=== PATIENT | male | born 1950 | race Two or more races ===

== ENCOUNTER 2018-02-09 10:24 | Emergency (ER) | payer OTHER ==
[2018-02-09] MEDS: NORMAL SALINE 1000 ML 1,000 ML IV ONE ×3 (10:45→15:55)
--- NOTE | 2018-02-09 11:11 | ER Document Report ---
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 Patient had no preceding symptomatology including lightheadedness, dizziness, chest pain, shortness of breath, weakness or numbness. Patient states he fell forward. He does not member the episode. It was witnessed with no shaking/seizure activity. Patient denies any symptomatology at this time including headache, neck pain, chest pain, abdominal pain, weakness or numbness. Patient states his tetanus is up-to-date. Patient states that he is from [facility] has been out of his metformin and amlodipine for greater than 2 weeks. - HPI Symptoms prior to episode: Other - See above Position/Activity at time of episode: Standing Quality of pain: Other - See above Severity: Mild Pain Level: Denies Context: Other - See above Current symptoms: None/feels back to normal Similar symptoms previously: No Recently seen / treated by doctor: No - Related Data Allergies/Adverse Reactions: No Known Allergies Allergy (Unverified 02/09/18 11:20) Past Medical History - Social History Smoking Status: Unknown if Ever Smoked Family History: Other Review of Systems - Review of Systems Constitutional: denies: Fever EENT: denies: Eye discharge, Nose discharge Cardiovascular: denies: Chest pain, Palpitations Respiratory: denies: Short of breath Gastrointestinal: denies: Vomiting Genitourinary: denies: Dysuria Musculoskeletal: denies: Leg swelling Skin: Other - no hives. denies: Rash Neurological/Psychological: Other - no slurred speech -: Yes All other systems reviewed and negative Physical Exam - Vital signs Vitals: Resp BP Pulse Ox 17 189/98 H 96 02/09/18 10:36 02/09/18 10:36 02/09/18 10:36 Notes: Reviewed vital signs and nursing note as charted by RN. CONSTITUTIONAL: Alert and oriented and responds appropriately to questions. Well -appearing; well-nourished HEAD: Patient has a small hemostatic laceration to the left temporal region as well as a abrasion/laceration to the right forehead. No depressed fractures noted EYES: PERRL; full extraocular range of motion ENT: Normal nose; no rhinorrhea; moist mucous membranes; no missing or loose dentition; no mastoid tenderness or ecchymosis; pharynx without lesions noted NECK: Supple without meningismus; non-tender; no cervical lymphadenopathy, no masses CARD: Regular rate and rhythm; no murmurs, no clicks, no rubs, no gallops; symmetric distal pulses RESP: Normal chest excursion without splinting or tachypnea; breath sounds clear and equal bilaterally ABD/GI: Normal bowel sounds; non-distended; soft, non-tender BACK: The back appears normal and is non-tender to palpation, there is no CVA tenderness EXT: Normal ROM in all joints; non-tender to palpation; no cyanosis, no effusions, no edema SKIN: See above NEURO: Cn 2-12 intact; Moves all extremities equally; Motor and sensory function intact PSYCH: The patient's mood and manner are appropriate. Grooming and personal hygiene are appropriate. Course - Re-evaluation Re-evalutation: 02/09/18 11:11 Given the above history and physical examination we will place the patient on the monitor, obtain a CT scan of the head, obtain basic labs, EKG, orthostatic vital signs, and an Accu-Chek. Accu-Chek as recorded. We will provide a liter of fluid and order venous blood gas. EKG shows a heart of 66, normal sinus rhythm, left axis deviation, poor R wave progression, inverted T waves in lead V6, minimal LVH. No old EKG to compare. 02/09/18 12:44 Labs as recorded. Normal anion gap. VBG is pending. Still no focal neurological deficits. CT as recorded. I spoke with the radiologist regarding the scan. She states mastoid effusions are not secondary to trauma. 02/09/18 14:29 CT scan is recorded. Labs as recorded. Blood glucose is improving. Venous blood gas as recorded. Given the above history and physical examination, I do not believe any other imaging or laboratory work is necessary. I do recommend admission for this patient given the unprovoked syncopal-like episode with the hypoglycemia and the high blood pressure. I have provided metformin, fluids, and amlodipine. Patient understands the risks and benefits of leaving but he does not want to be admitted at this time. 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 I have expressed to the patient the importance of staying with the risks of permanent disability and . He understands these risks and is able to sign out AGAINST MEDICAL ADVICE. He has capacity with orientation x4. 02/09/18 15:45 Patient's blood glucose has improved. We have given 2 L of fluid. Patient still has no focal neurological deficits. He denies any chest pain. He does not want to wait for any repeat laboratory values. I will provide amlodipine prescription and metformin prescription with strict return precautions and advised him to return at any time that he would like. - Vital Signs Vital signs: Temp Pulse Resp BP Pulse Ox 61 16 202/90 H 98 02/09/18 11:35 02/09/18 15:01 02/09/18 15:01 02/09/18 15:01 - Laboratory Result Diagrams: 02/09/18 10:06 02/09/18 10:06 Laboratory results interpreted by me: 02/09/18 02/09/18 02/09/18 10:06 11:38 12:36 VBG pH Sodium 132.1 L Chloride 97 L Carbon Dioxide 21 L BUN 29 H Glucose 565 H* POC Glucose 410 H* Urine Protein 100 H Urine Glucose (UA) >=500 H Urine Ketones TRACE H Urine Ascorbic Acid 20 H 02/09/18 02/09/18 12:50 14:30 VBG pH 7.43 H Sodium Chloride Carbon Dioxide BUN Glucose POC Glucose 370 H Urine Protein Urine Glucose (UA) Urine Ketones Urine Ascorbic Acid Procedures - Laceration/Wound Repair Left Face Wound length (cm): 4 Wound's Depth, Shape: Irregular, Flap, Stellate, Contused tissue Laceration pre-procedure: Shur-Clens applied Anesthetic type: 1% Lidocaine w/epi Volume Anesthetic (mLs): 5 Irrigated w/ Saline (mLs): 1,000 Wound Repaired With: Sutures Suture Size/Type: 5:0 Number of Sutures: 11 Post-procedure wound care: Sterile dressing applied Post-procedure NV exam normal: Yes Notes: 02/09/18 14:27 I also sutured another laceration to the left face that was 2 cm in length with 3 stitches. That makes 14 stitches total. 2 separate lacerations. Both of them were fixed with 5 Prolene. The second laceration was linear the first laceration was very complex as dictated. Discharge - Discharge Clinical Impression: Hyperglycemia Syncope Qualifiers: Syncope type: unspecified Qualified Code(s): R55 - Syncope and collapse Facial laceration Qualifiers: Encounter type: initial encounter Qualified Code(s): S01.81XA - Laceration without foreign body of other part of head, initial encounter High blood pressure Qualifiers: Hypertension type: unspecified Qualified Code(s): I10 - Essential (primary) hypertension Disposition: HOME, SELF-CARE Additional Instructions: Please return at any time that you would like for further assessment and evaluation. Please take the medications as prescribed. Please follow-up with your primary care physician at your next earliest availability. Please return in 7 days for suture removal. Please apply bacitracin to the wounds twice daily until sutures have been removed and then apply sunblock to the wounds once daily for 1 year thereafter. Come back immediately with any chest pain, lightheadedness, dizziness, vomiting , fever, redness or discharge from the wounds or around the wounds, or any other acute problems. Prescriptions: Amlodipine Besylate [Norvasc 10 mg Tablet] 10 mg PO DAILY #30 tablet Metformin HCl [Glucophage 500 mg Tablet] 500 mg PO BID #60 tablet
[2018-02-09 11:16] LABS: ABSOLUTE BASOPHILS # (AUTO) 0.1 10^3/uL (0.0-0.2); ABSOLUTE EOSINOPHILS # (AUTO) 0.1 10^3/uL (0.0-0.6); ABSOLUTE LYMPHOCYTES (AUTO) 1.9 10^3/uL (0.5-4.7); ABSOLUTE MONOCYTES (AUTO) 0.5 10^3/uL (0.1-1.4); ABSOLUTE NEUT (AUTO) 3.8 10^3/uL (1.7-8.2); EOSINOPHILS % (AUTO) 1.8 % (0-6); HEMATOCRIT 39.9 % (37.9-51.0); LYMPHOCYTES % (AUTO) 29.8 % (13-45); MEAN CORPUSCULAR HEMOGLOBIN 30.8 pg (27.0-33.4); MEAN CORPUSCULAR HGB CONC 35.2 g/dL (32.0-36.0); MEAN CORPUSCULAR VOLUME 88 fl (80-97); MONOCYTES % (AUTO) 7.3 % (3-13); PLATELET COUNT 228 10^3/uL (150-450); RED BLOOD COUNT 4.55 10^6/uL (4.35-5.55); RED CELL DISTRIBUTION WIDTH 12.9 % (11.5-14.0); SEGMENTED NEUTROPHILS % (AUTO) 60.1 % (42-78); TOTAL CELLS COUNTED % (AUTO) 100 %; WHITE BLOOD COUNT 6.4 10^3/uL (4.0-10.5)
[2018-02-09] MEDS: LIDOCAINE 1%/EPINEPHRINE INJ 20 ML VIAL INJ ONE (11:19)
--- NOTE | 2018-02-09 11:34 | RADIOLOGY REPORT (SQ) ---
EXAM DESCRIPTION: CT HEAD WITHOUT COMPLETED DATE/TIME: 02/09/2018 11:18 am REASON FOR STUDY: 9; syncope fall COMPARISON: None. TECHNIQUE: Axial images acquired through the brain without intravenous contrast. Images reviewed wi th bone, brain and subdural windows. Additional sagittal and coronal reconstructions were generated. Images stored on PACS. All CT scanners at this facility use dose modulation, iterative reconstruction, and/or weight based d osing when appropriate to reduce radiation dose to as low as reasonably achievable (ALARA). [facility]: Dose Right [facility]: CareDose [facility]: Dose Right [facility]: Teradose 4D [facility]: Smart seedchange RADIATION DOSE: CT Rad equipment meets quality standard of care and radiation dose reduction techniq ues were employed. CTDIvol: 53.2 mGy. DLP: 1044 mGy-cm. mGy. LIMITATIONS: None. FINDINGS: VENTRICLES: Normal size and contour. The cisterns are patent. CEREBRUM: No masses. No hemorrhage. No midline shift. No evidence for acute infarction. Normal gra y/white matter differentiation. No areas of low density in the white matter. CEREBELLUM: No masses. No hemorrhage. No alteration of density. No evidence for acute infarction. EXTRAAXIAL SPACES: No fluid collections. No masses. ORBITS AND GLOBE: No intra- or extraconal masses. Normal contour of globe without masses. CALVARIUM: No fracture. PARANASAL SINUSES: Small Eliel cell on the left. A 7 mm osteoma midline ethmoid sinus. Laure bu llosa in the middle terminates bilaterally, larger on the left. Deviation of the nasal septum. No f luid or mucosal thickening. SOFT TISSUES: No mass or hematoma. OTHER: Small bilateral mastoid effusions. IMPRESSION: 1. No acute intracranial abnormality. 2. Small bilateral mastoid effusions. 3. Additional findings as above. EVIDENCE OF ACUTE STROKE: NO COMMENT: Quality ID # [id number]: Final reports with documentation of one or more dose reduction techniques (e.g., Automated exposure control, adjustment of the mA and/or kV according to patient size, use of iterative reconstruction technique) TECHNICAL DOCUMENTATION: JOB ID: [id number] [email or web address]- All Rights Reserved Reading location - IP/workstation name: [email or web address]
[2018-02-09 11:45] LABS: ANION GAP 14 (5-19); BLOOD UREA NITROGEN 29 mg/dL (7-20); CARBON DIOXIDE 21 mmol/L (22-30); CHLORIDE 97 mmol/L (98-107); POTASSIUM 4.4 mmol/L (3.6-5.0); SODIUM 132.1 mmol/L (137-145)
[2018-02-09 11:52] LABS: APPEARANCE,URINE CLEAR; BILIRUBIN,URINE NEGATIVE (NEGATIVE); COLOR,URINE STRAW; GLUCOSE, URINE >=500 mg/dL (NEGATIVE); KETONES,URINE TRACE mg/dL (NEGATIVE); LEUKOCYTE ESTERASE,URINE NEGATIVE (NEGATIVE); NITRITE,URINE NEGATIVE (NEGATIVE); PROTEIN,URINE 100 mg/dL (NEGATIVE); URINE SPECIFIC GRAVITY 1.022; UROBILINOGEN,URINE NEGATIVE mg/dL (<2.0)
[2018-02-09 12:00] LABS: GLUCOSE 565 mg/dL (75-110)
[2018-02-09 13:03] LABS: VENOUS BLOOD BASE EXCESS 2.6 mmol/L; VENOUS BLOOD HCO3 27.3 mmol/L (20-32); VENOUS BLOOD PCO2 42.3 mmHg (35-63); VENOUS BLOOD PH 7.43 (7.30-7.42)
[2018-02-09] MEDS: AMLODIPINE BESYLATE 10 MG TABLET PO ONE (13:08)
[2018-02-09] MEDS: METFORMIN HCL 500 MG TABLET PO ONE (16:02)
[2018-02-09 16:50] VITALS: BP 211/90
--- NOTE | 2018-02-09 22:39 | EKG REPORT ---
SEVERITY:- ABNORMAL ECG - SINUS RHYTHM VENTRICULAR PREMATURE COMPLEX NONSPECIFIC IVCD WITH LAD ABNRM R PROG, CONSIDER ASMI OR LEAD PLACEMENT : Confirmed by: Vero Orourke MD 09-Feb-2018 22:38:20
== END 2018-02-09 16:56 | disposition home or self-care (01) ==
LOC: ER 10:24
PROC: 0HQ1XZZ Repair Face Skin, External Approach (ICD-10-PCS; principal; 2018-02-09)
DX: R73.9 Hyperglycemia, unspecified (principal); R55 Syncope and collapse; S01.81XA Laceration without foreign body of other part of head, initial encounter; W19.XXXA Unspecified fall, initial encounter; Y93.H3 Activity, building and construction; Y92.69 Other specified industrial and construction area as the place of occurrence of the external cause; Y99.0 Civilian activity done for income or pay; I10 Essential (primary) hypertension; Z53.21 Procedure and treatment not carried out due to patient leaving prior to being seen by health care provider
CPT/HCPCS: 93005; 99285; 96360; 96361; 36415; 82962; 85025; 80048; 81001; 84484; 82803; 70450; 93010; 13132; 12011; J3490; J7030